=== PATIENT | female | born 1980 | race Caucasian/White ===

== ENCOUNTER → 2017-08-27 14:47 | Outpatient (CLI) | payer BC, SELFPAY ==
[2017-08-27 16:08] LABS: Hematocrit 42.7 % (37-47); Mean Corp Hgb Conc 35.1 g/gl (32-36); Mean Corpuscular Hgb 30.4 pg (27.0-32.0); Mean Corpuscular Volume 86.6 fL (81-99); Mean Platelet Vol. 10.6 fl (6.2-12.0); Platelet Count 323 K/mm3 (150-450); RBC Distribution Width CV 13.6 % (11.6-14.6); Red Blood Count 4.93 M/mm3 (4.2-5.4); White Blood Count 9.4 K/mm3 (4.4-11.0)
[2017-08-27 16:11] LABS: Scan Indicated on CBC? Y/N NO
[2017-08-27 16:26] LABS: Hemoglobin A1c 5.6 % (4.2-6.3)
[2017-08-27 16:31] LABS: Free T3 2.7 pg/mL (2.18-3.98); Glucose 91 mg/dL (74-106); T4 Free Direct 0.97 ng/dL (0.76-1.46)
[2017-08-28 08:49] LABS: Vitamin B12 421 pg/mL (211-911)
== END ==
PROVIDERS: Visit Provider Obstetrics & Gynecology
DX: R53.83 Other fatigue (principal)
CPT/HCPCS: 36415; 82607; 82947; 83036; 84439; 84443; 84481; 85027

== ENCOUNTER → 2017-10-07 16:41 | Outpatient (CLI) | payer BC, SELFPAY ==
--- NOTE | 2017-10-07 16:41 | DT_ITS ---
This patient was seen during an EMR downtime October 05, 2017 - October 12, 2017. This patient may have a combination of paper and electronic documentation or all paper documentation. All documentation is viewable within the e-chart portion of [facility] for each patient visit.
--- NOTE | 2017-10-07 16:49 | RAD_ITS ---
STUDY: X-RAY - CERVICAL SPINE REASON FOR EXAM: Female, 37 years old. Neck pain TECHNIQUE: 4 view(s) of the cervical spine were obtained. COMPARISON: None FINDINGS: Normal anterior atlantoaxial articulation. Normal odontoid process. Normal cervical lordosis. Degenerative disc disease at the C5-6 and C6-7 levels. The soft tissue structures are unremarkable. RAD/Cerv Spine 2 or 3 Views IMPRESSION: Degenerative disc disease at the C5-6 and C6-7 levels. Electronically Signed: Indra Shepard MD at 3:53 EDT Tel , Service support ,
== END ==
PROVIDERS: Visit Provider Anesthesiology Pain Medicine
DX: M54.2 Cervicalgia (principal); M79.603 Pain in arm, unspecified
CPT/HCPCS: 72040

== ENCOUNTER → 2017-11-12 14:40 | Outpatient (CLI) | payer BC, SELFPAY ==
[2017-11-20 08:24] LABS: HPV Reflexed? NOT INDICATED
== END ==
PROVIDERS: Visit Provider Obstetrics & Gynecology
DX: Z12.4 Encounter for screening for malignant neoplasm of cervix (principal); Z12.72 Encounter for screening for malignant neoplasm of vagina
CPT/HCPCS: 88175; G0145

== ENCOUNTER → 2018-03-02 15:38 | Outpatient (CLI) | payer BC, SELFPAY | PROVIDERS: Visit Provider Obstetrics & Gynecology | DX: N39.0 Urinary tract infection, site not specified (principal) | CPT/HCPCS: 87086; 87088; 87186 ==

== ENCOUNTER → 2018-12-21 09:20 | Outpatient (CLI) | payer BC, SELFPAY ==
--- NOTE | 2018-12-21 09:24 | BI_ITS ---
MAMMOGRAPHY - BILATERAL DIAGNOSTIC REASON FOR EXAM: Female, 38 years old. Palpable lump PERTINENT HISTORY: Maternal grandmother, aunt, and great aunt with history of breast cancer TECHNIQUE: Digital examination. 3-D tomosynthesis was performed. Mediolateral oblique (MLO) and craniocaudad (CC) views of both breasts were obtained. CAD: CAD was performed on this study. COMPARISON: None. Baseline examination. FINDINGS: Breast Composition: The breasts are heterogeneously dense, which may obscure small masses. A focus of benign calcification is noted in the right retroareolar region, present since patient's teenage year as per history. There is no evidence of focal abnormality along the region of palpable focus within the upper inner quadrant on the right side. Sonogram of the same region also demonstrates no evidence of focal abnormality. There are no dominant masses or suspicious calcifications. No other significant abnormalities are identified. BI/DIAG MAMM W/CAD, BILAT IMPRESSION: No mammographic abnormality to indicate malignancy. ASSESSMENT CATEGORY: BIRADS Category 2: Benign. A letter regarding these results will be sent to the patient by the facility within 30 days. FOLLOW UP RECOMMENDATION: Begin screening mammograms at 40 years of age. (N) Approximately 10% of breast cancers are not detected by mammography. A normal mammogram should not delay biopsy of a clinically suspicious abnormality. Electronically Signed: Michael Marlow MD at 16:38 EDT Tel [phone], Service support ,
--- NOTE | 2018-12-21 09:24 | US_ITS ---
STUDY: ULTRASOUND BREAST - RIGHT REASON FOR EXAM: Female, 38 years old. Right breast lump along 2 foci TECHNIQUE: Axial and longitudinal images of the RIGHT breast were performed with a high resolution ultrasound transducer. COMPARISON: Mammogram of the same date. FINDINGS: RIGHT Breast: Patient complaining of palpable lump about pea-sized, in the far posterior aspect of the right breast which does not correspond to any mammographic abnormality on the mammogram. Sonogram of the same area also demonstrates no evidence of sonographic abnormality, cystic or solid lesion. The palpable focus in the retroareolar region has been present since patient's teenage years, corresponds to a calcification measuring 2 x 2 x 2 mm also visualized on the mammogram. US/Breast Limited Unilateral IMPRESSION: Benign calcification in the retroareolar region measuring 2 x 2 x 2 mm. No evidence of sonographic abnormality along the far posterior aspect of the right breast. ASSESSMENT CATEGORY: BIRADS Category 2: Benign. A letter regarding these results will be sent to the patient by the facility within 30 days. Electronically Signed: Michael Marlow MD at 12:00 EDT Tel [phone], Service support ,
== END ==
PROVIDERS: Referring Provider Obstetrics & Gynecology; Visit Provider Obstetrics & Gynecology
DX: N63.12 Unspecified lump in the right breast, upper inner quadrant (principal)
CPT/HCPCS: 76642; 77062; 77066; G0279

== ENCOUNTER → 2019-04-28 11:33 | Outpatient (CLI) | payer BC, SELFPAY ==
[2019-04-28 14:02] LABS: hCG Titer Quant., Serum < 1 mIU/mL (1-3)
[2019-04-28 14:10] LABS: Progesterone Level 0.65 ng/mL (See Comment)
== END ==
PROVIDERS: Referring Provider Obstetrics & Gynecology; Visit Provider Obstetrics & Gynecology
DX: N91.2 Amenorrhea, unspecified (principal)
CPT/HCPCS: 36415; 84144; 84702

== ENCOUNTER → 2019-10-31 | Outpatient (CLI) | payer BC, SELFPAY ==
[2019-05-26 10:25] VITALS: BMI 34.3
== END | disposition home or self-care (01) ==
LOC: LABSPEC 14:16
PROVIDERS: Visit Provider Obstetrics & Gynecology
DX: N39.0 Urinary tract infection, site not specified (principal)
CPT/HCPCS: 87086; 87088; 87186

== ENCOUNTER 2019-12-08 09:49 | Observation (INO) | payer BC, SELFPAY ==
[2019-05-26 10:25] VITALS: BMI 34.3
--- NOTE | 2019-12-02 10:48 | EKG12_ITS ---
Test Reason : PREOP Blood Pressure : / mmHG Vent. Rate : 076 BPM Atrial Rate : 076 BPM P-R Int : 148 ms QRS Dur : 088 ms QT Int : 384 ms P-R-T Axes : 030 042 023 degrees QTc Int : 432 ms Normal sinus rhythm Normal ECG Confirmed by ANNEMARIE DUMONT, SIDNEY ([id number]), editor map STEFAN RAIN ([id number]) on 12/05/2019 2:05:22 PM Referred By: April Caruso Confirmed By:JEREMI SHARPE MD
[2019-12-02 10:55] LABS: Hematocrit 46.7 % (37-47); Hemoglobin 15.9 g/dL (12.0-15.0); Mean Corpuscular Hgb 29.7 pg (27.0-32.0); Mean Corpuscular Volume 87.1 fL (81-99); Mean Platelet Vol. 9.7 fl (6.2-12.0); Platelet Count 308 K/mm3 (150-450); RBC Distribution Width CV 13.4 % (11.6-14.6); Red Blood Count 5.36 M/mm3 (4.2-5.4); White Blood Count 8.1 K/mm3 (4.4-11.0)
[2019-12-02 11:10] LABS: International Normalized Ratio 0.9; Partial Thromboplast Time 24.4 Seconds (24.1-36.2); Prothrombin Time (Protime)PT. 11.6 SECONDS (11.7-14.9)
[2019-12-02 11:26] LABS: AST(SGOT) 12 U/L (15-37); Alanine Aminotransfer ALT/SGPT 25 U/L (13-56); Albumin, Serum 4.1 g/dL (3.2-5.0); Alkaline Phosphatase 71 U/L (45-117); Bilirubin, Direct 0.12 mg/dL (0.00-0.30); Globulin 3.9 g/dL (2.2-4.2)
[2019-12-02 13:39] LABS: Probe Check PASS; Specimen Processing Control PASS
[2019-12-08] VITALS (12 sets, daily range): BP systolic 105–147; BP diastolic 60–85; PULSE 71–98; RESP 14–18; TEMP 36.5–37.1; O2SAT 94–98; BMI 33.1; BMI 33.2
[2019-12-08 05:58] LABS: Internal QC Validated? YES +Cl - CLEAR BKGD; Pregnancy, Urine Negative Negative
--- NOTE | 2019-12-08 06:01 | PCM.HPOB.BLA ---
History and Physical Date of Admission: 12/08/19 Surgical History and Physical Date: 12/06/2019 Name: LEATHA MARIE Age: 39 Date of : 1980 Leatha Marie, a 39 year old female 2 0 0 0 2, presents for LAV, BS on December 072019 at 7:30. --Leatha has a history of menorrhagia and uterine fibroids. She is scheduled for LAV with bilateral salpingectomy. MEDICATIONS HISTORY: Current medications prescribed by our practice are: 1. Xanax 0.5 mg tablet, one tab PO twice daily as needed 2. Zoloft 100 mg tablet, One pill by mouth once a day ALLERGIES: No Known Allergies Infections - HPV Illnesses - Migraines w/Menses, Depression Accidents - None Hospitalizations - Childbirth and see surgery Review of Systems: GENERAL - Denies fever, or chills SKIN - Denies skin changes EYES - Denies visual changes EARS - Denies difficulty hearing NOSE - Denies nasal congestion or bleeding MOUTH - Denies sore throat or difficulty swallowing NECK - Denies pain or swelling RESPIRATORY - Denies shortness of breath or wheezing CARDIOVASCULAR - Denies palpitations or chest pain GASTROINTESTINAL - Denies nausea, vomiting, diarrhea, constipation GENITOURINARY - heavy menses MUSCULOSKELETAL - Denies joint or muscle pain NEUROLOGICAL - Denies localized numbness or weakness PSYCHIATRIC - Denies depression or anxiety ENDOCRINE - Denies heat or cold intolerance, weight loss or gain HEMATO-IMMUNOLOGIC - Denies excesive bleeding with cuts SOCIAL HISTORY: Alcohol Use - RARELY Smoking - Socially Diet - no special diet Lifestyle - moderate stress lifestyle and Exercise - active Seat Belt Use - always Employer - Home Illicit Drug Use - denies use of street drugs Sexual Activity - Residence - Lives w/ Spouse-Sig Other Name - Moe Marie Spouse-Sig Other Occupation - Horticultural Specialty Grower [employer] Spouse-Sig Other Phone No - [phone] Children Name(s) - 2 Living Control - Tubal FAMILY HISTORY: MENSTRUAL HISTORY: LMP Known?- DefiniteAmount/Duration - 4-5 days, Regularity - irregular, Frequency - monthly days, Prior Menses - 09/12/2019, LMP - 11/10/19, Age Onset Menarche - 12 PAST PREGNANCIES: Total Pregnancies - 2; Full Term Pregnancies - 2; Premature - 0; Abortions, Induced - 0; Abortions, Spontaneous - 0; Ectopics - 0; Multiple Births - 0; Living Children - 2 SURGICAL HISTORY: 1. Tubal ; - 2. 11/24/2008 C/Section ; - 3. 02/16/2013 ; - PHYSICAL EXAM BP- 130/90 Sitting, Right arm, regular cuff Temp- 98.4 Taken Orally Weight- 213.26691 lbs Height- 66 inch BMI:34.45 CONSTITUTIONAL - NAD, well nourished, and well developed SKIN - No rash, lesions, or ulcers HEENT - normocephalic, atraumatic, sclerae anicteric LUNGS - clear to auscultation, no wheezing, no crackles, no rales and normal respiratory rate and rhythm CARDIAC - S1, S2, regular rate and rhythm ABDOMEN - Without hepatosplenomegaly, distention, masses, rebound, or guarding; normal bowel sounds; no hernias EXTREMITIES - No edema or calf tenderness NEUROLOGICAL - normal gait, normal balance, normal motor PSYCHIATRIC - A and O to time, place, person, mood and affect External Genitial Vagina - non-tender without lesions Urethra/Urethral Meatus - non-tender Bladder - non-tender Vagina - vaginal palm are pink and moist without loss of rugae and no evidence of atropy Cervix - without cervical motion tenderness and has normal size and features without evident lesions Uterus - 6 cm in size, mobile and nontender Adnexa - clear without massess or tenderness PAP 2018 - NILM ULTRASOUND 11/22/19 UTERUS: Retroverted and measures 7.7 x 5.4 x 4.8 cm. There appears to be a 2.1 x 1.7 x 1.6 cm posterior/right submucosal fibroid again seen. There are 2 small cystic areas seen within the uterus.. ENDOMETRIAL ECHO: 8.6mm. RIGHT OVARY: 3.6 x 2.7 x 2.5 cm and sub cm follicles are seen. LEFT OVARY: 3.4 x 3.3 x 2.1 cm and contains a 1.8 x 1.5 x 1.1 cm simple cyst. There is a daughter cyst within.. FREE FLUID: There is a trace amount seen in the anterior cul de sac. Laboratory Tests 12/08/19 12/02/1920 Range/Units 05:45 11:10 10:41 WBC (4.4-11.0) K/mm3 RBC (4.2-5.4) M/mm3 Hgb (12.0-15.0) g/dL Hct (37-47) % MCV (81-99) fL MCH (27.0-32.0) pg MCHC (32-36) g/dL RDW Std Deviation (35.1-43.9) fl RDW Coeff of Aubrey (11.6-14.6) % Plt Count (150-450) K/mm3 MPV (6.2-12.0) fl PT (11.7-14.9) SECONDS INR APTT (24.1-36.2) Seconds Total Bilirubin (0.20-1.00) mg/dL Direct Bilirubin (0.00-0.30) mg/dL AST (15-37) U/L ALT (13-56) U/L Alkaline Phosphatase (45-117) U/L Total Protein (6.4-8.2) g/dL Albumin (3.2-5.0) g/dL Globulin (2.2-4.2) g/dL Urine Test Negative Negative COVID-19 ([facility]) Negative (Not Detect) Blood Type Antibody Screen NEGATIVE 12/02/19 12/02/19 12/02/19 Range/Units 10:41 10:40 10:40 WBC (4.4-11.0) K/mm3 RBC (4.2-5.4) M/mm3 Hgb (12.0-15.0) g/dL Hct (37-47) % MCV (81-99) fL MCH (27.0-32.0) pg MCHC (32-36) g/dL RDW Std Deviation (35.1-43.9) fl RDW Coeff of Aubrey (11.6-14.6) % Plt Count (150-450) K/mm3 MPV (6.2-12.0) fl PT 11.6 L (11.7-14.9) SECONDS INR 0.9 APTT 24.4 (24.1-36.2) Seconds Total Bilirubin 0.50 (0.20-1.00) mg/dL Direct Bilirubin 0.12 (0.00-0.30) mg/dL AST 12 L (15-37) U/L ALT 25 (13-56) U/L Alkaline Phosphatase 71 (45-117) U/L Total Protein 8.0 (6.4-8.2) g/dL Albumin 4.1 (3.2-5.0) g/dL Globulin 3.9 (2.2-4.2) g/dL Urine Test Negative COVID-19 ([facility]) (Not Detect) Blood Type A POSITIVE Antibody Screen TNP 12/02/19 Range/Units 10:40 WBC 8.1 (4.4-11.0) K/mm3 RBC 5.36 (4.2-5.4) M/mm3 Hgb 15.9 H (12.0-15.0) g/dL Hct 46.7 (37-47) % MCV 87.1 (81-99) fL MCH 29.7 (27.0-32.0) pg MCHC 34.0 (32-36) g/dL RDW Std Deviation 42.0 (35.1-43.9) fl RDW Coeff of Aubrey 13.4 (11.6-14.6) % Plt Count 308 (150-450) K/mm3 MPV 9.7 (6.2-12.0) fl PT (11.7-14.9) SECONDS INR APTT (24.1-36.2) Seconds Total Bilirubin (0.20-1.00) mg/dL Direct Bilirubin (0.00-0.30) mg/dL AST (15-37) U/L ALT (13-56) U/L Alkaline Phosphatase (45-117) U/L Total Protein (6.4-8.2) g/dL Albumin (3.2-5.0) g/dL Globulin (2.2-4.2) g/dL Urine Test Negative COVID-19 ([facility]) (Not Detect) Blood Type Antibody Screen ASSESSMENT/PLAN: 1. Excessive And Frequent Menstruation With Regular Cycle and Secondary Dysmenorrhea Prior US with small uterine fibroid Plan for LAVH, bilateral salpingetomy with ovarian conservation Reviewed procedural r/b/i/a Proceed as planned Procedure Criteria Procedure Type: Elective COVID Risk Discussion: The surgeon/proceduralist and patient have discussed in detail the risk of exposure to and/or potential harm posed by the COVID-19 virus with having a surgery/procedure at this time versus the risk of delaying the surgery/procedure. It is not possible to know either the risk of delaying the surgery or procedure or chance of getting an infection with perfect accuracy, but a joint decision was made between the patient and the surgeon/proceduralist to proceed at this time with the scheduled surgery/procedure as indicated on the consent form.
[2019-12-08] MEDS: Lactated Ringers 1,000 ML 125 ML IV ×4 (06:25→21:18)
[2019-12-08] MEDS: Heparin Injection (Vial) 5,000 UNIT/ML VIAL 5000 UNIT SC (06:43)
--- NOTE | 2019-12-08 07:30 | HYST_PTH ---
PATIENT: LEATHA SWEENEY LOC: [facility] U#:[id number] AGE/SX: 39/F ROOM: [facility]313 RE12/08/[address]: Dr. April Caruso MD : 1980 BED: 1 DIS: 12/09/2019 SPEC #: [id number] RECD: 12/08/19 10:17 STATUS: MARVA TONY #: [id number] [place]: 12/08/19 07:[address]: April Edwards DEPT: SURGICAL PATHOLOGY RECD BY: Monica Matos ENTERED: 12/08/19 11:15 SP TYPE: HYSTERECT OT DR: No Primary Care Phys Tissues: Uterus, NOS Procedures: Surgery Specimen Level V HEADER OPERATION: Hysterectomy, LAVH, salpingectomy PRE-OP DIAGNOSIS: Excessive and frequent menstruation and secondary dysmenorrhea TISSUE SUBMITTED: Uterus and fallopian tubes MICROSCOPIC DIAGNOSIS Uterus and bilateral fallopian tubes, vaginal hysterectomy and bilateral salpingectomy: Cervix - mild chronic inflammation. Endometrium - proliferative endometrium. Myometrium - diffuse adenomyosis. Bilateral fallopian tubes - no pathologic diagnosis. SJ:rg 12/09/19 COMMENT Microscopic examination of sections of the fallopian tube shows fimbrial ends. Case has been reviewed in consultation with Dr. Saleem who concurs with the above diagnosis. IDC:AM MICROSCOPIC DESCRIPTION Slides are reviewed. GROSS DESCRIPTION Received in fixative is one container labeled with the patient's name and designated uterus. The specimen consists of a uterus with attached cervix, attached portions of right and left fallopian tubes and detached portions of unmarked fallopian tubes. The uterus with cervix measures 10 x 7 x 4.5 cm and weighs 105.7 gm. The ectocervix is grossly unremarkable. The cervical os is round in contour. The endocervical canal measures 3.5 cm in length and is grossly unremarkable. The triangular endometrial cavity measures 4 x 3.5 cm. The reddish-falcon endometrium measures up to 0.1 cm in thickness. The myometrium measures 2.5 cm in average thickness and is grossly consistent with adenomyosis. The detached right and left fallopian tube segments are similar in appearance with average lengths of 5 cm and average diameters of 0.6 cm. Distinct fimbriated ends are not visible. Forder Operator sections are submitted in nine cassettes as follows: 1 - anterior cervix, 2 - posterior cervix, 3 & 4 - anterior uterine wall, 5 & 6 - posterior uterine wall, 7 & 8 - right and left fallopian tubes. / AM:prabhjot 12/08/19 TC:5 CPT: 13749
[2019-12-08] MEDS: Bupivacaine Mpf 0.5% 30 ML VIAL (07:47)
[2019-12-08] MEDS: Vasopressin 20 UNITS/ML Vial (07:47)
[2019-12-08] MEDS: Ketorolac 30 MG/ML Syringe IV ×3 (13:00→23:30)
[2019-12-08] MEDS: Acetaminophen 500 MG Tablet 1000 MG PO ×3 (13:01→23:30)
[2019-12-08] MEDS: Docusate Sodium 100 MG Capsule PO ×2 (17:38→21:20)
[2019-12-08] MEDS: oxyCODONE 5 MG Tablet PO (17:39)
[2019-12-08] MEDS: Sertraline 50 MG Tablet 25 MG PO (21:20)
[2019-12-08] MEDS: 0.9% Saline Lock 10 ML Syringe IV (23:31)
[2019-12-09 05:29] VITALS: BP 115/62; PULSE 91; RESP 16; TEMP 36.8; O2SAT 98
[2019-12-09] MEDS: Ketorolac 30 MG/ML Syringe IV (05:37)
[2019-12-09] MEDS: 0.9% Saline Lock 10 ML Syringe IV (05:37)
[2019-12-09] MEDS: Acetaminophen 500 MG Tablet 1000 MG PO (05:37)
[2019-12-09 06:14] LABS: Hematocrit 39.1 % (37-47); Hemoglobin 13.3 g/dL (12.0-15.0); Mean Corpuscular Hgb 29.8 pg (27.0-32.0); Mean Corpuscular Volume 87.5 fL (81-99); Platelet Count 298 K/mm3 (150-450); RBC Distribution Width CV 13.1 % (11.6-14.6); RBC Distribution Width SD 41.5 fl (35.1-43.9); Red Blood Count 4.47 M/mm3 (4.2-5.4)
[2019-12-09 07:56] VITALS: O2SAT 96
--- NOTE | 2019-12-09 08:40 | PCM.PN.OB ---
Patient Problems: Active and Suspected Problems (Last Updated 05/26/19 @ 10:15 by Shea Padilla) H/O: hysterectomy (Acute) Subjective: Pain is controlled. OOB. Tolerated PO. No flatus yet or bowel movement. Denies chest pain or SOB. Objective: AVSS - Physical Exam Vitals/I&O's: Vital Signs Temp Pulse Resp BP Pulse Ox 98.2 F 91 16 115/62 98 12/09/19 05:29 12/09/19 05:29 12/09/19 05:29 12/09/19 05:29 12/09/19 05:29 Oxygen Flow Rate (L/min) 2 Oxygen Delivery Method Room Air Weight: 96.1 kg Body Mass Index (BMI) 33.2 Intake and Output for Last 24 Hours 12/07/19 12/08/19 12/09/19 23:59 23:59 23:59 Intake Total 3252.08 / 3252.08 1400 / 1400 Output Total 1655 / 1655 1000 / 1000 Balance 1597.08 / 1597.08 400 / 400 General: Alert, Oriented x3, Cooperative, No apparent distress HEENT: Atraumatic, Normocephalic Lungs: Clear to auscultation, Normal air movement Cardiovascular: Regular rate, Regular Rhythm, Normal S1, Normal S2 Abdomen: Bowel Sounds Present, Soft, Non Tender, Non-Distended, - - Incisional dressings c/d/i Extremities: No edema, No Calf Tenderness Neurological: Neuro grossly intact Psych/Mental Status: Normal Affect, Appropriate, Alert and oriented to time, place, person, mood and affect Laboratory Results 12/09/19 05:24: WBC 11.0, RBC 4.47, Hgb 13.3, Hct 39.1, MCV 87.5, MCH 29.8, MCHC 34.0, RDW Std Deviation 41.5, RDW Coeff of Aubrey 13.1, Plt Count 298, MPV 10.0 Current Medications Acetaminophen (Tylenol) 1,000 mg PO Q6 [facility] Last Admin: 12/09/19 05:37 Dose: 1,000 mg Documented by: Docusate Sodium (Colace) 100 mg PO BID [facility] Last Admin: 12/08/19 21:20 Dose: 100 mg Documented by: Enoxaparin Sodium (Lovenox) 40 mg SC DAILY@1000 [facility] Ketorolac Tromethamine (Toradol (Bkc)) 30 mg IV Q6 [facility] Stop: 12/09/19 18:01 Last Admin: 12/09/19 05:37 Dose: 30 mg Documented by: Magnesium Oxide (Mag-Ox 400) 400 mg PO DAILY PRN PRN PRN Reason: Constipation Ondansetron HCl (Zofran Odt) 4 mg PO Q6H PRN PRN PRN Reason: NAUSEA Oxycodone HCl (Oxyir) 5 - 10 mg PO Q4H PRN PRN PRN Reason: Pain Score 4-10/10 Last Admin: 12/08/19 17:39 Dose: 5 mg Documented by: Sertraline HCl (Zoloft) 25 mg PO QHS [facility] Last Admin: 12/08/19 21:20 Dose: 25 mg Documented by: Sodium Chloride () 10 - 40 ml IV UD PRN PRN Reason: SALINE FLUSH Last Admin: 12/09/19 05:37 Dose: 20 ml Documented by: Medical Necessity - Tobacco Use Smoking Status: Current every day smoker Tobacco Use: Cigarettes Assessment/Plan All Active Problems (Last Updated 05/26/19 @ 10:15 by Shea Padilla) H/O: hysterectomy (Acute) 39yo s/p ISRRAEL BARTH doing well. -d/c home today
--- NOTE | 2019-12-09 08:42 | DCINST_ITS ---
Discharge Diet: No Restrictions Discharge Activity: Return to Normal Activity, May not drive while taking narcotic pain medications., May Shower, - - No tub bath for 2 weeks May resume sexual activity in: 6 weeks Lifting Restrictions: 10 lb Call your doctor if your incision/area has: Continuous Slow Oozing, Sudden Increased Bleeding, Increased Pain/ Swelling, Increased Redness Call your doctor if you observe: Fever of 101 or Higher, Inability to urinate, Inability to have a bowel movement, Using more than one pad per hour, Shortness of breath, Chest pain, Calf discomfort, Uncontrolled pain Suture Line Care: Avoid Pulling/Pushing Remove Dressing in (days):: 0 - this afternoon Cleanse incision/area with: Soap & Water Allergies/Adverse Reactions: Allergies No Known Allergies Allergy (Verified 12/01/19 09:24) Medications to take at Discharge Ibuprofen [Motrin] 600 mg PO Q6H PRN PRN #60 tab 02/17/13 sertraline 25 mg tablet 100 mg PO QHS 05/26/19 Docusate Sodium [Colace] 100 mg PO BID PRN #60 cap 12/09/19 Oxycodone [Oxyir] 1 tab PO Q6H PRN PRN 7 Days #20 tab 12/09/19 The following prescriptions were given: Docusate Sodium [Colace] 100 mg PO BID PRN #60 cap PRN Reason: Constipation Transmission Status: Received by MESFIN MAZARIEGOS RD Oxycodone [Oxyir] 1 tab PO Q6H PRN PRN 7 Days #20 tab PRN Reason: Pain Score 4-10/10 Transmission Status: Received by MESFIN MAZARIEGOS RD Primary Care Physician: Care Physician,No Primary [Primary Care Provider] - Test Results: Test results from this visit will be discussed in further detail at your follow- up appointment, if applicable. Please Follow Up With: Abida When: 7-10 days
[2019-12-09 08:43] VITALS: BP 131/84; PULSE 73; RESP 18; TEMP 36.7; O2SAT 99
[2019-12-09] MEDS: Enoxaparin 40 MG/0.4 ML Syringe SC (09:40)
[2019-12-09] MEDS: Docusate Sodium 100 MG Capsule PO (09:42)
--- NOTE | 2019-12-10 08:02 | OP.PCM_ITS ---
Problem List (1) Excessive and frequent menstruation with regular cycle Status: Acute Report of Operation Date of Procedure: 12/08/19 Pre-Operative Diagnosis: 1. Excessive and frequent menstruation with regular cycle. 2. Uterine fibroids Post-Operative Diagnosis: same Surgery/Procedure Performed:: Laparoscopic assisted vaginal hysterectomy. Bilateral salpingectomy. Lysis of adhesions Description of Surgical Findings:: Significant bladder flap adhesion Uterus approximately 10w size with normal tubes and ovaries breed to wean production technician: Iesha Morrell Anesthesiologist: Keagan Rinaldi Special Medications: Vasopressin Specimen's removed: 1. uterus and cervix. 2. Bilateral tubes Estimated Blood Loss (mL): 250 mL Description of Procedure: Patient was brought to the operating room and sinus performed. She is placed in the dorsal supine position and induced under general anesthesia. Her arms were tucked at her sides and she was repositioned into dorsolithotomy. The perineum and abdomen were prepped and draped in sterile fashion. Straight catheterization of the bladder was performed. Patient was placed into high lithotomy and a weighted speculum placed vaginally. The cervix was grasped the anterior cervical lip and uterus sounded to 9 cm. Vasopressin dilution 20 units in 200 cc normal saline was injected within the cervix. The ZUMI uterine manipulator was placed and the tenaculum removed. The speculum is removed from the vagina and the patient was placed into low lithotomy. Attention was turned to the abdomen. Half percent bupivacaine was injected at the inferior umbilicus. An incision was made at the site. Veress needle was introduced with successful hanging drop test and no aspirate. The abdomen was insufflated to 15 mmHg. The Veress needle was removed and 5 mm port was placed under laparoscopic guidance confirming entry into the abdominal cavity. The patient was placed into Trendelenburg right and left lower quadrant tap blocks were performed under laparoscopic guidance using half percent bupivacaine as well. Incisions were made at each of the sites and 5 mm ports also placed. Suprapubic incision was also made and a 5 mm port placed for a total of 4 ports. The abdomen and pelvis were inspected. The appendix was normal in appearance. There was significant anterior cul-de-sac adhesion of the bladder to the midportion of the uterus. I started with dissection of the bladder adhesion. This was lysed using blunt and sharp dissection with monopolar electrocoagulation. Attention was then turned to the left adnexa. The left ureter was visualized. The left tubal fimbria was identified. The mesosalpinx was serially clamped, electrocoagulated and transected using the Enseal device to the level of the uterine cornua. The left round ligament was electrocoagulated and transected. The anterior broad ligament was opened with skeletonization of the uterine vessels and creation of the bladder flap along the left side. The uterine ovarian ligament was clamped electrocoagulated and transected with opening of the posterior broad ligament. Attention was turned to the left adnexa. The left ureter was visualized. In similar fashion as above right salpingectomy was performed and followed by isolation of the round ligament with opening of the broad ligament and skeletonization of the right uterine vessels, and right bladder flap creation complete the bladder flap. The uterine arteries were electrocoagulated bilaterally. The abdomen was desufflated and attention turned to the the vagina. The patient was placed into high lithotomy with less steep Trendelenburg. A weighted speculum was placed vaginally. The rectus was grasped using a single- tooth tenaculum. The posterior cul-de-sac was entered sharply at the level of the uterosacral ligaments using the Del Rosario scissors. A long weighted speculum was placed into the posterior cul-de-sac. The cervical incision was extended circumferentially and followed by dissection of the vesicouterine membrane. The anterior cul-de-sac peritoneum was incised and a curved Gretta placed into the anterior cul-de-sac. The uterosacral ligaments, cardinal ligament and uterine arteries were serially clamped, electrocoagulated and cut using the Enseal then suture ligated using 0 Vicryl -with incorporation of the each pedicle ligature and with the previous one. Due to bleeding the posterior vaginal cuff was reefed with the posterior peritoneum using 0 Vicryl with improved hemostasis. A modified Piedra culdoplasty was performed using pursestring suture of the uterosacral ligaments and intervening posterior peritoneum and a second stitch incorporating posterior vaginal cuff with the uterosacral ligaments. The vaginal cuff was closed using serial 0 Vicryl figure of 8 sutures with good hemostasis. Patient was placed into low lithotomy and attention turned again to the abdomen. Abdomen was reinsufflated and laparoscopy was again performed with excellent intra-abdominal hemostasis. The procedure was complete. The abdomen was desufflated, laparoscope and trochars were removed. Skin was closed using 4-0 Monocryl by the PROFESSOR OF MATHEMATICS under my supervision. Strips and OpSite dressings were placed over the incisions and additional bupivacaine was administered for total of 20 cc at the incisional sites. The patient was placed into dorsal supine positioning, arms untucked, awakened and extubated. She transferred to the recovery room without complication. Sponge and needle counts were correct x2. The patient tolerated the procedure well., - Complications none - Admit VTE Documentation VTE Present on Admission: No VTE Mechan Device Prophylaxis: SCD's VTE Pharm Prophylaxis ordered?: No
== END 2019-12-09 12:05 | disposition home or self-care (01) ==
LOC: SDC 10:34 → MS3 10:34
PROVIDERS: Anesthesiology; Admitting Provider Obstetrics & Gynecology; Referring Provider Obstetrics & Gynecology; Visit Provider Obstetrics & Gynecology
PROC: 0UT9FZZ Resection of Uterus, Via Natural or Artificial Opening With Percutaneous Endoscopic Assistance (ICD-10-PCS; CPT 58552; principal; 2019-12-08 07:05)
DX: D25.9 Leiomyoma of uterus, unspecified (principal); N92.0 Excessive and frequent menstruation with regular cycle; Z11.59 Encounter for screening for other viral diseases; Z79.899 Other long term (current) drug therapy; F32.9 Major depressive disorder, single episode, unspecified; F41.9 Anxiety disorder, unspecified; F17.210 Nicotine dependence, cigarettes, uncomplicated
CPT/HCPCS: 00940; 58552; 36415; 80076; 81025; 85027; 85610; 85730; 86850; 86900; 86901; 87635; 88307; 93005; 94799; 96361; 96372; 96374; 96376; 99218; 99251; J7120; A4216; C1760; G0378; G0379; G0463; J2405; U0003

== ENCOUNTER → 2021-05-02 | Outpatient (CLI) | payer BC, SELFPAY | END | disposition home or self-care (01) | LOC: LABSPEC 13:28 | PROVIDERS: Visit Provider Obstetrics & Gynecology | DX: N30.00 Acute cystitis without hematuria (principal) | CPT/HCPCS: 87086; 87088; 87186 ==

== ENCOUNTER → 2024-05-09 | Outpatient (CLI) | payer BC, SELFPAY | END | disposition home or self-care (01) | PROVIDERS: Referring Provider Physician Assistant; Visit Provider Physician Assistant | DX: R30.0 Dysuria (principal) | CPT/HCPCS: 87086 ==

== ENCOUNTER → 2024-05-23 | Outpatient (CLI) | payer BC, SELFPAY ==
--- NOTE | 2024-05-23 13:47 | US_ITS ---
STUDY: RENAL ULTRASOUND - COMPLETE REASON FOR EXAM: Female, 44 years old. UTI TECHNIQUE: Ultrasound evaluation of the kidneys was performed with real-time and static roberts-scale imaging. COMPARISON: None. FINDINGS: RIGHT KIDNEY: Normal location of the right kidney, which is normal in size. The right kidney measures 10.9 cm x 5.8 cm x 4.6 cm. There is a normal cortex of the right kidney. The renal cortex measures 1.3 cm. There is no right renal mass or cyst. There is a 4 mm x 4 mm x 3 mm calculus in the lower pole calyx of the kidney. There is mild hydronephrosis of the right kidney. DISTAL RIGHT URETER: There is non-visualization of the distal right ureter. There is no demonstrated right ureterovesical junction calculus. There is a visualized right ureteral jet. LEFT KIDNEY: Normal location of the left kidney, which is normal in size. The left kidney measures 11.9 cm x 5.1 cm x 5.5 cm. There is a normal cortex of the left kidney. The renal cortex measures 1.5 cm. There is no left renal mass or cyst. There are no left renal calculi. There is mild hydronephrosis of the left kidney. DISTAL LEFT URETER: There is non-visualization of the distal left ureter. There is no demonstrated left ureterovesical junction calculus. There is a visualized left ureteral jet. BLADDER: The distended urinary bladder has a volume of 391 ml. There is a normal wall thickness of the distended urinary bladder. There is no demonstrated mass within the urinary bladder. There are no demonstrated bladder calculi. US/Kidney and Bladder IMPRESSION: Mild bilateral hydronephrosis. Nonobstructive right intrarenal calculus. Electronically Signed: Alvin Lawrence MD at 15:09 EST ,
== END | disposition home or self-care (01) ==
PROVIDERS: PCP Nurse Practitioner Family; Referring Provider Urology; Visit Provider Urology
DX: N39.0 Urinary tract infection, site not specified (principal)
CPT/HCPCS: 76770

== ENCOUNTER → 2024-06-14 | Outpatient (CLI) | payer BC, SELFPAY ==
--- NOTE | 2024-06-14 15:46 | CT_ITS ---
EXAM: CT Abdomen and Pelvis Without and With Intravenous Contrast CLINICAL INDICATION: TECHNIQUE: Axial computed tomography images of the abdomen and pelvis without and with intravenous contrast. This CT exam was performed using one or more of the following dose reduction techniques: automated exposure control, adjustment of the mA and/or kV according to patient size, and/or use of iterative reconstruction technique. COMPARISON: No relevant prior studies available. FINDINGS: LUNG BASES: Unremarkable. No mass. No consolidation. ABDOMEN: LIVER: Fatty infiltration of the liver. GALLBLADDER AND BILE DUCTS: Unremarkable. No calcified stones. No ductal dilation. PANCREAS: Unremarkable. No mass. No ductal dilation. SPLEEN: Unremarkable. No splenomegaly. ADRENALS: Unremarkable. No mass. KIDNEYS AND URETERS: 2 mm calculus of the right renal pelvis without obstruction. STOMACH AND BOWEL: Fecal retention in the colon consistent with constipation. Colonic diverticulosis without acute diverticulitis. No obstruction. PELVIS: APPENDIX: No findings to suggest acute appendicitis. BLADDER: Unremarkable. No mass. No stones. REPRODUCTIVE: Unremarkable as visualized. ABDOMEN and PELVIS: INTRAPERITONEAL SPACE: Unremarkable. No free air. No significant fluid collection. BONES/JOINTS: No acute fracture. No dislocation. SOFT TISSUES: Umbilical hernia containing fat. VASCULATURE: Unremarkable. No abdominal aortic aneurysm. LYMPH NODES: Unremarkable. No enlarged lymph nodes. CT/CT Abd/Pelvis W/WO Contrast IMPRESSION: 1. 2 mm calculus of the right renal pelvis without obstruction. 2. Fecal retention in the colon consistent with constipation. 3. Umbilical hernia containing fat. 4. Colonic diverticulosis without acute diverticulitis. Reading Location: [facility]
== END | disposition home or self-care (01) ==
LOC: CT 15:45
PROVIDERS: PCP Nurse Practitioner Family; Referring Provider Urology; Visit Provider Urology
DX: N13.2 Hydronephrosis with renal and ureteral calculous obstruction (principal)
CPT/HCPCS: 74178; Q9967